=== PATIENT | female | born 2005 | race Caucasian/White ===

== ENCOUNTER → 2024-04-08 14:34 | Outpatient (REF) | payer BC, SELFPAY | LOC: MRI 3T 14:34 | PROVIDERS: ATTENDING PHYSICIAN Family Medicine Sports Medicine; FAMILY PHYSICIAN Pediatrics | DX: M54.50 Low back pain, unspecified (principal); G89.29 Other chronic pain | CPT/HCPCS: 72148 ==

== ENCOUNTER 2024-05-23 00:44 | Emergency (ER) | payer BC, SELFPAY ==
[2024-05-23 00:54] VITALS: BP 137/81
[2024-05-23 02:29] VITALS: BP 111/71
[2024-05-23 02:30] VITALS: BMI 27.0
[2024-05-23 02:32] VITALS: BP 111/71
[2024-05-23 02:43] LABS: % Basophils 0.4 % (0-2); % Eosinophils 1.9 % (0-6); % Immature Granulocytes 0.2 % (0-0.5); % Lymphocytes 25.7 % (20.5-51.1); % Monocytes 8.3 % (1.7-9.3); % Neutrophils 63.5 % (42.2-75.2); Absolute Eosinophils 0.2 10^3/uL (0-0.7); Absolute Lymphocytes 2.4 10^3/uL (1.2-3.4); Absolute Monocytes 0.8 10^3/uL (0.1-0.6); Absolute Neutrophils 5.9 10^3/uL (1.4-6.5); Hematocrit 37.1 % (37.0-47.0); Hemoglobin 13.2 g/dL (12.0-16.0); Mean Corp Hgb Conc. 35.6 g/dL (33.0-37.0); Mean Corpuscular Volume 84.3 fL (81.0-99.0); Mean Platelet Volume 9.3 fL (7.4-10.4); Nucleated Red Blood Cells % 0 %; Platelet Count 277 10^3/uL (130-400); Red Cell Dist. Width 11.8 % (11.5-14.5); White Blood Cell Count 9.3 10^3/uL (4.8-10.8)
--- NOTE | 2024-05-23 02:53 | ED.GENMED ---
History of Present Illness
General
Chief Complaint: Breathing Problem
Source: patient
Exam Limitations: none
Time Seen by Provider: 05/23/24 02:29
Nursing documentation reviewed up to this point in time: agreed with
History of Present Illness
History of Present Illness:
Pleasant 19-year-old female presents to the emergency department with shortness of breath and chest tightness. She states that she felt like her throat was closing when she tried to fall asleep. Patient does have a history of anxiety disorder.
She has had panic attacks in the past which she states is identical denies fever, chills, nausea or vomiting. States that symptoms have improved. At time of my exam she was asymptomatic.
Review of Systems
Review of Systems
Allergies reviewed?: Yes
All Other Systems: ROS reviewed and negative except as documented in HPI and ROS
Constitutional: Reports no symptoms
EENT: Reports no symptoms
Respiratory: Reports no symptoms
Cardiac: Reports no symptoms
ABD/GI: Reports no symptoms
: Reports no symptoms
Musculoskeletal: Reports no symptoms
Skin: Reports no symptoms
Neurological: Reports no symptoms
Endocrine: Reports no symptoms
Hematologic/Lymphatic: Reports no symptoms
Psychiatric: Reports anxiety
Phy Exam
General Physical Exam
General Presentation: well appearing and no apparent distress
General Skin: warm and dry
General Habitus: normal
General Mental: alert
General Hydration: appears well hydrated
ENT Exam
ENT Exam: EOMI, pharynx normal, neck supple and normocephalic
Eye Exam
Eye Exam: PERRL, cornea clear and conjunctiva normal
Cardiovascular Exam
Cardiovascular Exam: regular rate/rhythm, no edema, no murmur and normal peripheral pulses
Pulmonary Exam
Pulmonary Exam: lungs clear, no respiratory distress, no rales, no crackles, no rhonchi, no stridor, no wheezing and no cough
Gastrointestinal Exam
Gastrointestinal Exam: normal bowel sounds, non tender, soft, no organomegaly, no pulsatile mass and non distended
Neurological Exam
Neurological Exam: alert, oriented x3, no motor deficits and speech normal
Musculoskeletal Exam
Musculoskeletal Exam: full ROM and no edema
Skin Exam
Skin Exam: normal color, warm/dry, no rash and no petechia
Psychiatric Exam
Psychiatric Exam: normal mood/affect
Course
Orders/Labs/Results
Orders:
Orders
05/23/24 00:58
Electrocardiogram (*1) Urgent
Reason for Study: Shortness of Breath
EKG- Treatment ONCE
05/23/24 02:15
CXR2 [CR Chest - 2 Views ] Urgent
Comment:
Reason For Exam: short of breath
05/23/24 02:21
CMP [Comprehensive Metabolic Panel] Urgent
Complete Blood Count/With Diff Urgent
HCG, Serum Qualitative Screen Urgent
Troponin I Urgent
05/23/24 02:25
COVID-19 Antigen Urgent
Source: Nasal Swab
Influenza A+B Rapid Molecular Urgent
JUN Source: Nasal Swab
Specimen Description:
05/23/24 02:26
Test Result ONCE
05/23/24 02:38
TSH Reflex To Free T4 Urgent
Abnormal Lab Results
05/23/24
02:21
Absolute Monos (auto) 0.8 H 10^3/uL
(0.1-0.6)
BUN 21 H mg/dl
(7-17)
Glucose 100 H mg/dl
(70-99)
05/23/24 02:21
05/23/24 02:21
Vital Signs
Initial and Last Documented VS:
Initial Vital Signs
Temp Pulse Resp BP Pulse Ox
98.1 F 117 20 137/81 100
05/23/24 00:54 05/23/24 00:54 05/23/24 00:54 05/23/24 00:54 05/23/24 00:54
Last Documented Vital Signs
Temp Pulse Resp BP Pulse Ox
98.1 F 91 23 115/75 97
05/23/24 00:54 05/23/24 04:00 05/23/24 04:00 05/23/24 04:00 05/23/24 04:00
*Radiology
Radiology exam reviewed: all reviewed NAD by ED Provider
*Critical Care Note
Total Time (30-74mins, 75-104mins- exclusive of procedures): Not Applicable
Update Note
Update Note:
Patient resting comfortably, in no acute distress. X-rays negative. Lab work is negative. Patient to be discharged with close follow-up
ED Attending Note
-
Portions of this chart may have been created with voice recognition software.� Occasional wrong word or��sound alike� substitutions may have occurred due to the inherent limitations of voice recognition software.
Discharge Plan
Departure
Patient Disposition: Home (Routine Discharge)
Date of Disposition: 05/23/24
Time of Disposition: 04:34
Patient with high blood pressure during this ER visit?: No
Discharge Problem:
Chest tightness, Anxiety
Instructions: Chest Pain PCP Follow Up
Prescriptions:
No Action
Celebrex
PO BID
Rx Instructions:
unknown dose
Referrals:
Reji Sanchez III, DO [Family Provider] -
Activity Restrictions/Additional Instructions:
It was a pleasure meeting you and taking part in your care. We hope for your continued healing and wellness.
Please read discharge instructions in their entirety. However, they are for general education and may not describe your exact diagnosis at discharge. Information on your ER visit and medical conditions were discussed with you along with appropriate
follow up information...
If indicated, please take your medications as instructed and indicated on discharge paperwork.
Please schedule a follow up appointment as directed. Call to schedule an appointment
Please return to the emergency department with ANY change in, persisting, or worsening of symptoms. If any of your symptoms do not improve, or persist, or become more severe within 6-12 hours, please return to the emergency department for further
care.
Please return to the emergency department if you develop a headache, neck pain/stiffness, fever greater than 100.4F, chest pain, shortness of breath, persistent nausea, vomiting, slurred speech, difficulty walking, numbness/tingling, weakness, signs
of infection or any other symptoms that are worrisome to you.
If you have any questions or concerns please do not hesitate to call the Hospital at or E-mail me directly at [email or web address]
Interventions
Interventions:
*Risk Screen - Suicide Last Done: 05/23/24 00:54
*General Assessment Last Done: 05/23/24 02:30
*Neglect/Abuse Screening Last Done: 05/23/24 00:54
ED- Fall Risk Assessment Last Done: 05/23/24 02:33
*ED COVID-19 Vaccine History Last Done: 05/23/24 00:54
ED- Cardiac Assessment Last Done: 05/23/24 02:33
ED- Pulmonary Assessment Last Done: 05/23/24 02:33
Discharge Date and Time
Print Language: POLISH
[2024-05-23 02:56] LABS: ALT (SGPT) 22 U/L (0-35); AST (SGOT) 23 U/L (14-36); Albumin 4.9 g/dl (3.5-5.0); Alkaline Phosphatase 63 U/L (38-126); Blood Urea Nitrogen 21 mg/dl (7-17); Calcium 9.7 mg/dl (8.4-10.2); Carbon Dioxide 23 mmol/L (22-30); Chloride 103 mmol/L (98-107); Estimated Creatinine Clearance 97 ml/min; Glucose 100 mg/dl (70-99); Potassium 3.9 mmol/L (3.5-5.1); Sodium 136 mmol/L (135-145); Total Bilirubin 0.8 mg/dl (0.2-1.3); Total Protein 7.1 g/dl (6.3-8.2); eGFR > 60.00
[2024-05-23 02:59] LABS: COVID-19 Antigen Negative (Negative)
[2024-05-23 03:00] VITALS: BP 110/71
[2024-05-23 03:06] LABS: Troponin I < 0.012 ng/ml
[2024-05-23 03:28] LABS: TSH Reflex To Free T4 1.95 uIU/ml (0.47-4.68)
[2024-05-23 03:57] LABS: HCG, Serum Qualitative Screen Negative
[2024-05-23 04:00] VITALS: BP 115/75
== END 2024-05-23 04:46 | disposition home or self-care (01) ==
LOC: EMR 00:44
PROVIDERS: EMERGENCY PHYSICIAN Student in an Organized Health Care Education/Training Program; FAMILY PHYSICIAN Student in an Organized Health Care Education/Training Program
DX: R07.89 Other chest pain (principal); F41.9 Anxiety disorder, unspecified; Z11.52 Encounter for screening for COVID-19
CPT/HCPCS: 99285; 71046; 80053; 84443; 84484; 84703; 85025; 87502; 87811; 93005